=== PATIENT | female | born 1985 | race Caucasian/White ===

== ENCOUNTER 2017-03-23 13:41 | Emergency (ER) | payer MEDICARE ==
[~2017-03-23 13:41] MED LIST: CALCIUM 600+D T1 TA1 PO; FERROUS SULFAT325 MG PO; FOLIC ACID1 MG PO; MOTRIN600 MG PO; PERCOCET 7.5/321 TA1 PO; PRENATAL COMPLE1 TAB PO; VITAMIN B-1250 MCG PO
[2017-03-23 15:04] LABS: BASOPHILS 0.3 % (0-2); EOSINOPHILS 4.8 % (0-7); HEMATOCRIT 34.2 % (36.0-48.0); HEMOGLOBIN 11.7 g/dL (12-16); IMMATURE GRANULOCYTES 0.1 % (0-5); LYMPHOCYTES 29.6 % (15-50); MCH 30.1 pg (26.0-34.0); MCHC 34.2 g/dL (31.0-37.0); MCV 87.9 fL (80.0-100.0); MONOCYTES 6.7 % (2-11); NEUTROPHILS 58.5 % (40-80); PLATELET COUNT 203 10x3/uL (130-400); RBC 3.89 10x6/uL (4.00-5.40); RDW 12.8 % (11.5-14.5); WBC 7.6 10x3/uL (4.8-10.8)
== END 2017-03-23 16:15 | disposition home or self-care (01) ==
LOC: D.ER 13:41
PROVIDERS: Physician Assistant
DX: S20.219A Contusion of unspecified front wall of thorax, initial encounter (principal); V43.52XA Car driver injured in collision with other type car in traffic accident, initial encounter; Y93.89 Activity, other specified; Y92.410 Unspecified street and highway as the place of occurrence of the external cause; M54.6 Pain in thoracic spine

== ENCOUNTER 2018-05-04 14:14 | Emergency (ER) | payer MEDICARE ==
[~2018-05-04] VITALS: Ht 157.5 cm; Wt 81.8 kg
[2018-05-04 14:27] VITALS: Ht 157.5 cm; Wt 81.8 kg
[2018-05-04] MEDS ORDERED: NEURONTIN 300300 MG PO (14:30)
[2018-05-04] MEDS ORDERED: BUSPAR5 MG PO (14:30)
[2018-05-04] MEDS ORDERED: NORVASC10 MG PO (14:31)
[2018-05-04] MEDS ORDERED: INDERAL10 MG PO (14:31)
[2018-05-04] MEDS ORDERED: TRILEPTAL300 MG PO (14:32)
[2018-05-04] MEDS ORDERED: FISH OIL 1,0001 CA1 PO (14:32)
[2018-05-04] MEDS ORDERED: COZAAR50 MG PO (14:32)
[2018-05-04 15:31] LABS: APPEARANCE HAZY (CLEAR); BILIRUBIN NEGATIVE (NEGATIVE); COLOR YELLOW (YELLOW); GLUCOSE NEGATIVE (NEGATIVE); KETONE NEGATIVE (NEGATIVE); NITRITE NEGATIVE (NEGATIVE); PROTEIN NEGATIVE (NEGATIVE); UROBILINOGEN NORMAL (NORMAL)
[2018-05-04 15:32] LABS: BACTERIA MANY /hpf (NONE SEEN); EPITHELIAL CELLS 0-5 /hpf (0-5); RED CELLS - URINE 0-5 /hpf (0-5); WHITE CELLS - URINE 25-50 /hpf (0-5)
[2018-05-04 15:35] LABS: BASOPHILS 0.1 % (0-2); EOSINOPHILS 6.9 % (0-7); HEMATOCRIT 34.3 % (36.0-48.0); HEMOGLOBIN 12.1 g/dL (12-16); IMMATURE GRANULOCYTES 0.4 % (0-5); LYMPHOCYTES 29.9 % (15-50); MCH 30.7 pg (26.0-34.0); MCHC 35.3 g/dL (31.0-37.0); MCV 87.1 fL (80.0-100.0); MEAN PLATELET VOLUME 8.7 fL (7.4-10.4); MONOCYTES 5.5 % (2-11); NEUTROPHILS 57.2 % (40-80); PLATELET COUNT 182 10x3/uL (130-400); RBC 3.94 10x6/uL (4.00-5.40); RDW 12.6 % (11.5-14.5); WBC 8.3 10x3/uL (4.8-10.8)
[2018-05-04 16:00] LABS: ALBUMIN 3.7 g/dL (3.4-5.0); ALKALINE PHOSPHATASE 48 U/L (46-116); ALT (SGPT) 34 U/L (10-68); CALC OSMOLALITY 279 mosm/kg (275-300); CARBON DIOXIDE 27.6 mmol/L (21.0-32.0); CHLORIDE - SERUM 104 mmol/L (98-107); CREATININE - SERUM 0.9 mg/dL (0.6-1.3); GLUCOSE 98 mg/dL (74-106); PROTEIN - SERUM 7.2 g/dL (6.4-8.2); SODIUM 139 mmol/L (136-145); UREA NITROGEN 19 mg/dL (7-18); eGFR NON AFRICAN AMERICAN 76 mL/min (90-120)
[2018-05-04 18:24] VITALS: BP 117/76
== END 2018-05-04 18:24 | disposition home or self-care (01) ==
LOC: D.ER 14:14
PROVIDERS: Family Medicine
DX: N93.9 Abnormal uterine and vaginal bleeding, unspecified (principal); N88.8 Other specified noninflammatory disorders of cervix uteri; G40.909 Epilepsy, unspecified, not intractable, without status epilepticus; I10 Essential (primary) hypertension